=== PATIENT | male | born 1975 | race Caucasian/White ===

== ENCOUNTER 2019-03-04 16:56 | Inpatient (IN) | payer MEDICAID ==
[~2019-03-04] VITALS: Ht 167.6 cm; Wt 77.6 kg
[2019-03-04 17:05] VITALS: Ht 167.6 cm; Wt 77.6 kg
--- NOTE | 2019-03-04 18:04 | NUR ---
PT C/O "POKING" MUQ PAIN WITH N/V SINCE THURSDAY PER PT "I ATE EGGS BEFOER BED AND IT HAS BEEN HURTING SINCE" PT DENIES ANY RECENT TRAUMA AND/OR INJURY. PT DENIES ANY OTHER S/S. PT AAOX4, RESPS E/U, SKIN PINK DRY AND WARM, +N +V AT THIS TIME, EMESIS BAG PROVIDED, PT PLACED ON FULL CM, NSR, SPOUSE AT BEDSIDE, PT AWAITING MSE
--- NOTE | 2019-03-04 18:09 | NUR ---
PT INSTRUCTED TO PROVIDE URINE SPECIMEN DAVIDA
--- NOTE | 2019-03-04 18:09 | NUR ---
SING AT BEDSIDE PERFORMING MSE
[2019-03-04 18:20] LABS: CALCIUM 8.3 mg/dL (8.5-10.1); CARBON DIOXIDE 28.4 mmol/L (21-32); CHLORIDE SERUM 104 mmol/L (98-107); CREATININE SERUM 0.8 mg/dL (0.7-1.3); GFR1 > 60 mL/min; POTASSIUM SERUM 3.8 mmol/L (3.5-5.1); SODIUM SERUM 140 mmol/L (136-145)
[2019-03-04 18:22] LABS: ALBUMIN 3.9 g/dL (3.4-5.0); ALKALINE PHOSPHATASE 255 U/L (46-116); ALT/SGPT 607 U/L (16-63); AST/SGOT 382 U/L (15-37); BILIRUBIN TOTAL 7.5 mg/dL (0.20-1.00); TOTAL PROTEIN, SERUM 7.8 g/dL (6.4-8.2)
[2019-03-04 18:24] LABS: PLATELET COUNT 160 x10^3mcL (130-400); RED CELL DISTRIBUTION WIDTH 13.8 % (11.5-14.5)
[2019-03-04 18:27] LABS: BASOPHIL % 0 % (0-2)
--- NOTE | 2019-03-04 18:31 | NUR ---
US AT BEDSIDE
[2019-03-04 19:01] LABS: GLUCOSE SERUM 138 mg/dL (74-106)
--- NOTE | 2019-03-04 19:08 | NUR ---
REPORT GIVEN TO LEVI JEFFERY RN
--- NOTE | 2019-03-04 19:10 | NUR ---
REPORT GIVEN BY JESSICA GONZALEZ. PT REQUESTING TO USE RESTROOM AT THIS TIME. PT AMBULATED TO RESTROOM WITH STEADY GAIT TO PROVIDE URINE SAMPLE.
[2019-03-04 19:37] LABS: LIPASE 26937 IU/L (73-393)
--- NOTE | 2019-03-04 19:50 | NUR ---
LAB AT BEDSIDE FOR BLOOD CULTURE COLLECTION.
--- NOTE | 2019-03-04 19:56 | NUR ---
PT STATES "IM GOING TO THROW UP". PT VOMITED MEDIUM AMOUNT OF EMESIS. DR POE MADE AWARE. PT MEDICATED PER MD ORDERS. WILL CONTINUE TO MONITOR.
--- NOTE | 2019-03-04 20:33 | NUR ---
REPORT CALLED TO ANIKET GONZALEZ
--- NOTE | 2019-03-04 20:44 | NUR ---
[facility] TO LISA PARK. VERIFIED WITH LISA PARK THAT PT WAS VONTUNTARY HOLD. VIVIAN NOTIFIED THAT PT DID NOT WANT TO RETURN TO [facility] AND THAT DR POE WAS AWARE AND WANTED TO DC PT HOME. VIVIAN GONZALEZ ACKNOWLEDGED. PT IS CALM AND COOPERATIVE, DENIES SI OR HI. DR POE MADE AWARE.
[2019-03-04 21:10] LABS: FREE T4 0.99 ng/dL (0.76-1.46); FREE THYROXINE INDEX 2.8 ug/dL (1.4-4.5); T4(THYROXINE) 8.4 ug/dL (4.7-13.3)
[2019-03-04 21:11] LABS: T3 TOTAL 0.99 ng/mL
--- NOTE | 2019-03-04 21:14 | NUR ---
PT TRANSFERED TO [facility] AT THIS TIME BY JODIE EMT VIA WHEELCHAIR. PT A&0X4 SPEAKING FULL CLEAR SENTENCES. PT BREATHING EVEN AND UNLABORED. PT ACCOMPANIED BY FAMILY. PT AND FAMILY VERBALIZED UNDERSTANDING OF DC INSTRUCTIONS AND MEDICATION REVIEW.
[2019-03-04 21:28] VITALS: BP 143/86
[2019-03-04 21:28] LABS: microscopic required? NO
--- NOTE | 2019-03-04 21:30 | NUR ---
PT RECEIVED FROM LISA MCKNIGHT, PT IS ALERT AND ORIENTED X4, CALM AND COOPERATIVE WITH CARE. PT IS COMPLAINING OF ABDOMINAL PAIN AT THIS TIME. PT STATES PAIN IS SHARP. AND IS 10/10. WILL MEDICATE WITH PRN NORCO. SAFETY AND COMFORT MEASURES MAINTAINED, BED IN LOWEST POSITION, CALL LIGHT WITHIN REACH. WILL CONTINUE TO MONITOR.
[2019-03-04 21:33] LABS: urine erythrocyte NEGATIVE (NEGATIVE)
--- NOTE | 2019-03-04 21:35 | NUR ---
RECEIVED PT FROM ER, PT ADMIT FOR GALLSTONE, PANCREATITIS, PT IS A/O X4, VERBAL RESPONSIVE, ABLE TO TELL WHAT HE NEEDS. LUNG SOUND CLEAR BILATERAL, NO COUGH, NO SOB, PT DENY ANY CHEST PAIN OR DISCOMFORT, BOWEL SOUND PRESENT ALL 4 QUADRANTS, MILD DISTENTED. C/O PAIN AT MID ABD, DENY ANY N/V AT THIS MOMENT, PEDAL PULSE PRESENT BOTH FEET,NO EDEMA, IV AT RIGHT AC, NO LEAKING, NO INFILTRATION. ALL ADLS ASSIST, ALL NEED MET, CALL LIGHT IN REACH, WILL CONTINUE TO MONITOR.
[2019-03-04 21:53] LABS: AMPHETAMINE QUAL UR NONE DETECTED (See below)
--- NOTE | 2019-03-04 22:24 | NUR ---
PT HAS ACTIVE VOMITING EPISODE AND IS COMPLAINING OF SHARP ABDOMINAL PAIN. PT STATES PAIN IS 10/10 PAIN. PRN NORCO GIVEN AND PRN ZOFRAN GIVEN FOR NAUSEA. WILL CONTINUE TO MONITOR PATIENT.
--- NOTE | 2019-03-04 23:26 | NUR ---
ASSUMED THE CARE FROM LISA MARCIAL, PT ASLEEP NO S/SX OF PAIN, IVF INFUSING WELL FAMILY AT BEDSIDE, CONT TO MONITOR.
--- NOTE | 2019-03-05 01:34 | NUR ---
PT AWAKE AND RESTLESS STATED HE'S IN A LOT OF PAIN 10/10 PER ASSESSMENT, NORCO PO GIVEN EARLIER OFFERS SHORT RELIEF PER PT, CALLED DR BAXTER, SPOKE TO MD AND ORDER OBTAINED FOR MORPHINE IV 1MG, MEDS GIVEN PER PRN ORDER, CONT TO MONITOR.
--- NOTE | 2019-03-05 01:47 | NUR ---
PT START VOMITING AFTER GIVING MORPHINE IVP, ZOFRAN 4MG ADMIN PER PRN ORDER FOR N/V, CONT TO MONITOR.
[2019-03-05 05:18] VITALS: BP 133/81
--- NOTE | 2019-03-05 07:00 | NUR ---
RECEIVED REPORT FROM SAVANNA RN, PT RESTING IN BED IN NO ACUTE RESP DISTRESS
[2019-03-05 07:04] LABS: CALCIUM 8.2 mg/dL (8.5-10.1); CARBON DIOXIDE 22.1 mmol/L (21-32); CHLORIDE SERUM 106 mmol/L (98-107); CHOLESTEROL 166 mg/dL (<200); CHOLESTEROL/HDL RATIO 3.6; CREATININE SERUM 0.7 mg/dL (0.7-1.3); GFR1 > 60 mL/min; GLUCOSE SERUM 163 mg/dL (74-106); HDL CHOLESTEROL 46 mg/dL (40-60); LACTIC DEHYDROGENASE (LDH) 234 U/L (100-190); POTASSIUM SERUM 3.6 mmol/L (3.5-5.1); SODIUM SERUM 140 mmol/L (136-145); TRIGLYCERIDES 64 mg/dL (<150)
--- NOTE | 2019-03-05 07:05 | NUR ---
PT IN BED, IN NO ACURE RESP DISTRESS, VERBAL, GERMAN/[place], ABLE TO MAKE NEEDS KNOWN, NO REDNESS/DISCHARGE, NO DROOP FACE/SLURRED SPEECH, PERRLA, RESP EVEN AND NON-LABORED, CHEST RISE SYMMETRICALLY, MEDSURG, AXOX4, DENIED N/V/D/DIZZINESS, DENIED CP/PRESSURE/VENCES, SKIN D/W/C, IV PATENT AND NO INFILTRATION, AMBULATORY, BRP, CONTINENT, ABD ROUND AND MILD NON-TENDER TO TOUCH, REPORT MILD DISCOMFORT BUT TOLERABLE AT THIS TIME, 09/12, ACTIVE X 4, LAST BM 03/04/19, SOFT PER PT REPORT, AT BEDSIDE, ALL NEEDS MET AT THIS TIME, SAFETY PROTOCOL FOLLOWED, CONTINUE TO MONITOR
--- NOTE | 2019-03-05 07:10 | NUR ---
PT NOT IN ACUTE DISTRESS, WENT DOWN FOR CT ABD
[2019-03-05 07:12] LABS: BASOPHIL % 0 % (0-2); PLATELET COUNT 147 x10^3mcL (130-400); RED CELL DISTRIBUTION WIDTH 13.8 % (11.5-14.5)
--- NOTE | 2019-03-05 08:10 | NUR ---
PT BACK TO ROOM FROM CT ABD, RESTIGN IN BED W/ EYE CLOSED, NOT IN ACUTE RESP DISTRESS
--- NOTE | 2019-03-05 09:14 | NUR ---
PT PREPARED FOR SURGERY, PRE-OP DONE, CHECK LIST DONE, EZEQUIEL BATH GIVEN, FAMILY AND PT AWARE, CONTINUE TO MONITOR
--- NOTE | 2019-03-05 09:20 | NUR ---
REPORT GIVEN TO [employer]UNITY [employer]ATION AIDE, INFORMED CONSENT SIGNED AND KEPT IN CHART, PT AND FAMILY AWARE
[2019-03-05 09:21] VITALS: BP 134/79
--- NOTE | 2019-03-05 09:23 | NUR ---
RECEIVED REPORT FROM ASHWIN COMPOSITE BOND TECHNICIAN, AWARE OF RESULT OF CT RESULT, AND CHARGE NURSE ANNABELLA MADE AWARE, PT WILL HAVE SURGERY AT 0930
--- NOTE | 2019-03-05 10:14 | NUR ---
OR STAFF CALLED AND REPORTED DELAY W/ SURGERY, PT WILL HAVE SURGERY AT 1030 AND POSSIBLE BE BACK AT 1200, AWARE
--- NOTE | 2019-03-05 11:21 | NUR ---
PT BACK FROM ERCP PROCEDURE, REPORT GIVEN BY REINA BOAT DIESEL MOTOR MECHANIC, PT HAD STENT X 2, BALLOON INSERTION SPHINCTEROTOMY, PT IN NO ACUTE DISTRESS, RESTING IN BED W/ EYE CLOSED, RESP EVEN AND NON-LABORED, CHEST RISE SYMMETRICALLY, ABD ROUND AND MILD DISTENTION TO TOUCH, REPORT MINIMAL AND TOLERABLE DISCOMFORT AT THIS TIME, IV PATENT AND NO-INFILTRATION NOTED, V/S: 132/76, 68, 18, 99% AT RA, 0/10, 98.6, FAMILY AT BEDSIDE, DROWSY, CONTINUE TO BE NPO, SAFETY PROTOCOL FOLLOWED, CONTINUE TO MONITOR
--- NOTE | 2019-03-05 12:14 | NUR ---
PT RESTING IN BED, SCD APPLIED, DENIED DISCOMFORT AT THIS TIME, WIF AT BEDSIDE, SAFETY PROTOCOL FOLLOWED, CONTINUE TO MONITOR
--- NOTE | 2019-03-05 14:18 | NUR ---
PT SLEEPING IN BED, IN NO APPARENT DISTRESS/PAIN, AT BEDSIDE, ALL NEEDS MET AT THIS TIME, SAFETY PROTOCOL FOLLOWED, CONTINUE TO MONITOR
[2019-03-05 16:41] VITALS: BP 124/75
--- NOTE | 2019-03-05 18:04 | NUR ---
PT SLEEPING IN BED, IN NO ACUTE RESP DISTRESS, AT BEDSIDE, ABLE TO MAKE NEEDS KNOWN, CALM AND COPPERATIVE W/ POC, DENIED VENCES/CP/PRESSURE, DENIED N/V/D/DIZZINESS, NO FACIAL DROOP/SLURRED SPEECH, RESP EVEN AND NON-LABORED, CHEST RISE SYMMETRICALLY, ABD SOFT AND MILD TENDER TO TOUCH, BS ACTIVE X 4, ABLE TO MOVE ALL EXTREMITIES, IV PATENT AND NO INFILTRATION NOTED, SKIN W/D/C, CONTINENT, AMBULATORY, ALL NEEDS MET AT THIS TIME, SAFETY PROTOCOL FOLLOWED, WILL ENDORSE TO ONCOMING RN
--- NOTE | 2019-03-05 19:05 | NUR ---
PT RECEIVED FROM THE DAY SHIFT RN. PT HAS BEEN CALM AND COOPERATIVE WITH CARE, PT IS ALERT AND ORIENTED X4, PT STATES PULSATING PAIN IN HIS ABDOMEN AND IS A 4/10 AT THIS TIME. PT WAS GIVEN PRN NORCO EARLIER IN SHIFT ( SEE MAR), PT STATES NORCO DOES IMPROVE PAIN. SISTER IS AT THE BEDSIDE. ALL QUESTIONS AND CONCERS ADDRESSED, SAFETY AND COMFORT MEASURES MAINTAINED, CALL LIGHT WITHIN REACH. WILL CONTINUE TO MONITOR AT THIS TIME.
--- NOTE | 2019-03-05 19:54 | NUR ---
PT TEMPERATURE IS AT 100.9, COOLING MEASURES STARTED AND WILL MEDICATE WITH PRN TYLENOL. WILL CONTINUE TO MONITOR.
[2019-03-05 20:14] VITALS: BP 118/70
--- NOTE | 2019-03-06 01:27 | NUR ---
PT IS RESTING IN BED WITH EYES CLOSED AT THIS TIME. NO ACUTE DISTRESS NOTED. NO S/S OF PAIN NOTED. SAFETY AND COMFORT MEASURES MAINTAINED, BED IN LOWEST POSITION, CALL LIGHT WITHIN REACH.
--- NOTE | 2019-03-06 05:26 | NUR ---
PT HAS RESTED IN INTERMITTENT INTERVALS THROUGHOUT THE SHIFT. PT HAS BEEN ALERT AND ORIENTED X4, CALM AND COOPERATIVE WITH CARE. SISTER IS AT THE BEDSIDE. PT IS RESTING WITH EYES CLOSED, NO ACUTE DISTRESS NOTED. NO S/S OF PAIN NOTED. IV INFUSING AND INTACT AT THIS TIME. SAFETY AND COMFORT MEASURES MAINTAINED, BED IN LOWEST POSITION, CALL LIGHT WITHIN REACH. WILL ENDORSE CONTINUITY OF CARE TO THE ONCOMING RN.
[2019-03-06 05:42] VITALS: BP 128/81
[2019-03-06 05:56] LABS: RED CELL DISTRIBUTION WIDTH 13.7 % (11.5-14.5)
[2019-03-06 06:23] LABS: CALCIUM 8.1 mg/dL (8.5-10.1); CARBON DIOXIDE 26.3 mmol/L (21-32); CHLORIDE SERUM 104 mmol/L (98-107); CREATININE SERUM 0.7 mg/dL (0.7-1.3); GFR1 > 60 mL/min; GLUCOSE SERUM 101 mg/dL (74-106); PHOSPHOROUS 2.2 mg/dL (2.5-4.9); POTASSIUM SERUM 3.4 mmol/L (3.5-5.1); SODIUM SERUM 139 mmol/L (136-145)
[2019-03-06 06:52] LABS: PLATELET COUNT 120 x10^3mcL (130-400)
--- NOTE | 2019-03-06 07:39 | NUR ---
RECEIVED REPORT FROM ANIKET RN, PT IN NO ACUTE RESP DISTRESS
[2019-03-06 07:44] VITALS: BP 120/75
--- NOTE | 2019-03-06 09:30 | NUR ---
PT IN NO ACUTE DISTRESS, NPO
[2019-03-06 10:05] LABS: CALCIUM 7.3 mg/dL (8.5-10.1); CARBON DIOXIDE 24.4 mmol/L (21-32); CHLORIDE SERUM 104 mmol/L (98-107); CREATININE SERUM 0.7 mg/dL (0.7-1.3); GFR1 > 60 mL/min; GLUCOSE SERUM 99 mg/dL (74-106); POTASSIUM SERUM 3.5 mmol/L (3.5-5.1); SODIUM SERUM 137 mmol/L (136-145)
--- NOTE | 2019-03-06 10:05 | NUR ---
SURGEON OU VISITED PT, INFORMED CONSENT SIGNED, PRE-OP PREPARED AND COMPLETED, EZEQUIEL BATH GIVEN, PT IN STABLE CONDITION
--- NOTE | 2019-03-06 10:06 | NUR ---
PT IN BED, IN NO ACURE RESP DISTRESS, VERBAL, THAI/KINYARWANDA, ABLE TO MAKE NEEDS KNOWN, NO REDNESS/DISCHARGE, NO DROOP FACE/SLURRED SPEECH, PERRLA, RESP EVEN AND NON-LABORED, CHEST RISE SYMMETRICALLY, MEDSURG, AXOX4, DENIED N/V/D/DIZZINESS, DENIED CP/PRESSURE/VENCES, SKIN D/W/C, IV PATENT AND NO INFILTRATION, LR AT 150ML/HR RUNING W/ NO OBSTRUCTION, AMBULATORY, BRP, CONTINENT, ABD ROUND AND MILD NON-TENDER TO TOUCH, REPORT MILD DISCOMFORT BUT TOLERABLE AT THIS TIME, COMFORT MEASUREMET DONE FOR TEMP, TAKEN WELL, ACTIVE X 4, LAST BM 03/04/19, SOFT PER PT REPORT, FAMILY AT BEDSIDE, ALL NEEDS MET AT THIS TIME, SAFETY PROTOCOL FOLLOWED, CONTINUE TO MONITOR
[2019-03-06 10:10] LABS: ALKALINE PHOSPHATASE 166 U/L (46-116); ALT/SGPT 280 U/L (16-63); AST/SGOT 81 U/L (15-37); BILIRUBIN TOTAL 2.96 mg/dL (0.20-1.00)
[2019-03-06 10:12] LABS: ALBUMIN 2.9 g/dL (3.4-5.0); TOTAL PROTEIN, SERUM 5.8 g/dL (6.4-8.2)
--- NOTE | 2019-03-06 10:25 | NUR ---
PT WENT TO OR, ASSISTED BY REINA GONZALEZ VIA STACEY, PT NOT IN ACUTE REPS DISTRESS, FAMILY AWARE, WILL CONTINUE TO MONITOR PT POST-OP
[2019-03-06 10:54] LABS: BAND NEUTROPHIL 1 % (0-10); BASOPHIL 0 % (0-2); MONOCYTE 6 % (0-7); SEGMENTED NEUTROPHILS 89 % (37-75)
[2019-03-06 10:57] LABS: PLATELET MORPHOLOGY PLATELETS NORMAL
[2019-03-06 13:30] VITALS: BP 106/72
--- NOTE | 2019-03-06 13:34 | NUR ---
PT RETURNED FROM OR, NOT IN ACUTE RESP DISTRESS, AXOX4 W/ LITTLE DROWSY, ABLE TO MOVE ALL EXTREMITIES, VERBAL, ABLE TO MAKE NEEDS KNOWN, NO FACIAL DROOP/SPLURRED SPEECH, RESP EVEN, NO COUGH/SOB, CHEST RISE SYMMETRICALLY, MEDSURG, ABD ROUND AND MILD DICOMFORT REPORTED, BS HYPOACTIVE X 4, 6 INCISION NOTED COVER WITH BANDAID AND ISLAND DRESSING, DRESSING CDI, NAHID TUBE TO RUQ, NOTED 25CC BLOODY DRAINAGE, CORE BAKER REPORT 500CC BLOOD LOSS DURING OPERATION, PT REPORTED NO PAIN AT THIS TIME, SKIN D/W/C, PALP PULSES, CAP REFILL < 3 SECS, V/S: 98.4, 96% AT RA, 18, 88, 106/72, 0/10, FAMILY AT BEDSIDE, ALL NEEDS ADDRESSED AT THIS TIME, SAFETY PROTOCOL FOLLOWED FOR POST-OP PT, CONTINUE TO MONITOR
--- NOTE | 2019-03-06 14:49 | NUR ---
PT SLEEPING IN BED, IN NO ACUTE RESP DISTRESS, NAHID DRAINED, NOTED 100CC BLOODY DRAINAGE, IV PATENT AND INFUSING WELL, ALL NEEDS ADDRESSED AT THIS TIME, SAFETY PROTOCOL FOLLOWED, CONTINUE TO MONITOR
[2019-03-06 16:44] VITALS: BP 112/73
--- NOTE | 2019-03-06 16:50 | NUR ---
PT RESTING IN BED W/ EYES CLOSED, IN NO APPARENT DISTRESS, NAHID DRAINED NOTED 60CC DRAINAGE WITH RED BLOODY COLOR, DRESSING CDI, FAMILY AT BEDSIDE, ALL NEEDS ADDRESSED AT THIS TIME, SAFETY MONITOR, CONTINUE TO MONITOR
--- NOTE | 2019-03-06 17:06 | NUR ---
PT ASISTED TO BATHROOM, VOIDED X 1, ASSISTED BACK TO BED, SAFETY MONITOR, CONTINUE TO MONITOR
--- NOTE | 2019-03-06 18:15 | NUR ---
PT RESTING IN BED, FAMILY AT [facility], IN NO ACUTE DISTRESS, RESP EVEN, NO COUGH/SOB, CHEST RISE SYMMETRICALLY, NO FAIACL DROOP/SLUURED SPEECH, ABLE TO MAKE NEEDS KNOWN, ABD SOFT AND ROUND, 6 BANDAIDS TO ABD SITE CDI, ISLAND DRESSING CDI, NAHID TUBE PATENT AND NO OBSTRUCTION NOTED AT THIS TIME, RED BLOOD COLOR DRAINGE NOTED, ABLE TO MOVE ALL EXTREMITIES, IV PATENT AND INFUSING WELL, CONTINENT, AMBULATORY, ALL NEEDS ADDRESSED AT THIS TIME, SAFETY PROTOCOL FOLLOWED, WILL ENDORSE TO ONCOMING RN
[2019-03-06 18:33] LABS: RED CELL DISTRIBUTION WIDTH 13.8 % (11.5-14.5)
[2019-03-06 18:44] LABS: PLATELET COUNT 113 x10^3mcL (130-400)
[2019-03-06 18:54] LABS: BAND NEUTROPHIL 3 % (0-10); MONOCYTE 5 % (0-7); SEGMENTED NEUTROPHILS 90 % (37-75)
[2019-03-06 18:56] LABS: PLATELET MORPHOLOGY PLATELETS DECREASED; acanthocyte (spur cell) 1+; rbc morphology (normal/abnorm) ABNORMAL (NORMAL)
--- NOTE | 2019-03-06 19:14 | NUR ---
REPORT GIVEN TO CHADD GONZALEZ
--- NOTE | 2019-03-06 19:30 | NUR ---
RECIEVED PATIENT AT START OF SHIFT A.O X4, FAMILY AT BEDSIDE. MED-SURG. NO SOB ON RA, BREATHS REGULAR AND EVEN. PATIENT REPORTS 7/10 PAIN TO HIS ABDOMEN. DRESSING ON ABDOMEN IS CLEAN DRY AND INTACT. NAHID DRAIN HAS MINIMAL SEROSANGUINOUS DRAINAGE. IV TO RAC IS INFUSING WITHOUT ERYTHEMA OR INFILTRATION. BED LOCKED AND IN LOWEST POSIITON. CALL LIGHT WITHIN REACH.
--- NOTE | 2019-03-06 19:39 | NUR ---
PATIENT GIVEN NORCO PER EMAR FOR 7/10 ABDOMINAL PAIN.
[2019-03-06 20:38] VITALS: BP 114/73
--- NOTE | 2019-03-06 21:30 | NUR ---
PATIENT REPORTED PERSISTENT 7/10 ABDOMINAL PAIN. MORPHINE OBTAINED FROM [facility]IS WITH JUAN GONZALEZ TO WITNESS 1 MG WASTE. PATIENT THEN DECIDED HE DID NOT WANT THE MORPHINE BECAUSE IT MAKES HIM NAUSEOUS. REMAINING 1 MG WASTED WITH ROXANNA GONZALEZ WITNESS.
--- NOTE | 2019-03-07 01:37 | NUR ---
PATIENT GIVEN NORCO PER EMAR FOR 7/10 PAIN TO HIS ABDOMEN. IV INFUSING WITHOUT ERYTHEMA OR INFILTRATION. ABDOMINAL SURGICAL DRESSINGS REMAINS CDI. NAHID DRAINING MODERATE SEROSANGUINOUS FLUID. CALL LIGHT WITHIN REACH.
--- NOTE | 2019-03-07 05:20 | NUR ---
PATIENT GIVEN NORCO PER EMAR FOR 10/10 PAIN TO HIS ABDOMEN.
--- NOTE | 2019-03-07 05:58 | NUR ---
PATIENT'S NAHID DRAIN PRODUCED 140 MLS TOTAL OF SEROSANGUINOUS DRAINAGE THIS SHIFT. SURGICAL DRESSING REMAINS CDI. IV INFUSING WITHOUT ERYTHEMA OR INFILTRATION. BED LOCKED AND IN LOWEST POSIITON. CALL LIGHT WITHIN REACH.
[2019-03-07 05:59] VITALS: BP 121/74
[2019-03-07 06:26] LABS: RED CELL DISTRIBUTION WIDTH 13.8 % (11.5-14.5)
[2019-03-07 06:32] LABS: BASOPHIL % 0 % (0-2); PLATELET COUNT 110 x10^3mcL (130-400)
--- NOTE | 2019-03-07 06:36 | NUR ---
PATIENT GIVEN DILAUDID PER EMAR FOR 9/10 PAIN TO HIS ABDOMEN.
[2019-03-07 06:47] LABS: ALBUMIN 2.3 g/dL (3.4-5.0); ALT/SGPT 217 U/L (16-63); AST/SGOT 106 U/L (15-37); CREATININE SERUM 0.7 mg/dL (0.7-1.3); GFR1 > 60 mL/min; GLUCOSE SERUM 96 mg/dL (74-106); MAGNESIUM 2.2 mg/dL (1.8-2.4); PHOSPHOROUS 2.2 mg/dL (2.5-4.9); POTASSIUM SERUM 3.9 mmol/L (3.5-5.1)
--- NOTE | 2019-03-07 07:50 | NUR ---
RECEIVED PT IN BED A/A/OX4 DENIES VENCES. RESP EVEN AND UNLABORED WITH CLEAR BS BILAT. DENIES ANY SOB/CP/PRESSURE AT THIS TIME. NO EDEMA NOTED. ABD SOFT, DISTENDED, AND TENDER TO TOUCH, DENIES ANY N/V AT THIS TIME. MILD PAIN RECENTLY MEDICATED WITH DILAUDID. S/P LAP LAWRENCE POD1 AND S/P ERCP POD2. PT WITH ABD SX DRSG IN PLACE CDI. RLQ NAHID DRAIN IN PLACE WITH SEROUSANGUINOUS DRAINAGE. AMBULATORY, VOIDING FREELY. CALL LIGHT IN REACH NEEDS ATTENDED TO.
[2019-03-07 08:09] LABS: ALKALINE PHOSPHATASE 150 U/L (46-116); BILIRUBIN TOTAL 3.97 mg/dL (0.20-1.00); CALCIUM 8.4 mg/dL (8.5-10.1); CARBON DIOXIDE 22.4 mmol/L (21-32); CHLORIDE SERUM 101 mmol/L (98-107); SODIUM SERUM 135 mmol/L (136-145); TOTAL PROTEIN, SERUM 6.5 g/dL (6.4-8.2)
[2019-03-07 08:58] VITALS: BP 117/79
--- NOTE | 2019-03-07 10:05 | NUR ---
PT C/O PAIN TO SX SITE 01/10. MEDICATED WITH NORCO PER EMAR.
--- NOTE | 2019-03-07 11:17 | NUR ---
PT STILL C/O OF DISCOMFORT WITH MINIMAL RELIEF WITH NORCO. MEDICATED WITH TORADOL PO PER EMAR.
--- NOTE | 2019-03-07 13:00 | NUR ---
RECEIVED A CALL FROM DR. MEDINA REQUESTING INFORMATION ON PT'S STATUS. MADE AWARE OF LATEST LAB RESULTS. MD ORDER LABS FOR TOMORROW MORNING. MD ALSO REQUESTED FOR PT TO BE MADE AWARE THAT HE HAD PLACED 2 STENT ON PANCREATIC DUCT AND BILE DUCT. MD WANTED TO MAKE SURE PT WAS AWARE THAT HE NEEDED TO F/U WITH HIM AT HIS OFFICE IN 2 WEEKS TO HAVE PANCREATIC STENT REMOVED. SPOKE WITH PT IN [employer] AND MADE HIM AWARE OF INSTRUCTIONS BY DR. MEDINA. PT VERBALIZED HE WAS AWARE THAT HE HAD 2 STENTS AND UNDERSTOOD THAT HE NEEDED TO F/U WITH DR. MEDINA WITH IN 2 WEEK. PT WAS PROVIDED WITH DR. MEDINA OFFICE INFO AT THIS TIME.
--- NOTE | 2019-03-07 14:50 | NUR ---
PT TOLERATING CLEAR LIQUID DIET WELL. DENIES ANY FURTHER DISCOMFORT AT THIS TIME. SITTING UP ON EDGE OF BED, ENCOURAGE AMBUALTION.
[2019-03-07 16:14] VITALS: BP 112/68
--- NOTE | 2019-03-07 17:00 | NUR ---
PT RESTING WITH EYES CLOSD COMFORTABLE. MOTHER REMAINS AT BEDSIDE.
--- NOTE | 2019-03-07 18:25 | NUR ---
PT RESTING AT THIS TIME WITH FAMILY AT BEDSIDE C/O MOD PAIN. PT AMBULATED DOWN THE HALLWAY. TOLERATED ACTIVITY WELL.
--- NOTE | 2019-03-07 18:36 | NUR ---
PT C/O PAIN TO ABD. MEDICATED WITH NORCO PO PER EMAR.
--- NOTE | 2019-03-07 19:30 | NUR ---
RECEIVED REPORT FROM AM NURSE. PT LAYING DOWN IN BED WITH FAMILY AT BEDSIDE. PT AAOX4, FOLLOW COMMANDS. ABLE TO MAKE NEEDS KNOWN. MED/SURG DENIES ANY CP/PRESSURE AT THIS TIME. PALPABLE PULSES TO BLE AND BUE. NO EDEMA NOTED. LUNG SOUNDS CTA ON RA. BREATHING EVEN AND UNLABORED. ABD SOFT AND DISTENDED. S/P X1 DAY LAP LAWRENCE. ACTIVE BOWEL SOUNDS X4 QUAD. STATED PASSING GAS. LAST BM 03/04/19. DENIES N/V/D. VOIDS FREELY BRP. AMBULATORY. 6 BAND AIDS TO ABD CDI. NAHID DRAIN TO RUQ DRAINING SEROSANGUINEUS FLUID. C.O 12/10 ABD PAIN DESCRIBED ACHING. WILL MEDICATE ACCORDINGLY. IV TO RAC PATENT AND INTACT. SITE FREE FROM REDNESS AND SWELLING. BED AT LOWEST SETTING. SIDE RAILS X2 UP. CALL LIGHT WITHING REACH. WILL CONTINUE TO MONITOR.
[2019-03-07 20:59] VITALS: BP 120/76
--- NOTE | 2019-03-07 22:10 | NUR ---
PT MEDICATED WITH PRN TORADOL PER MAR FOR ABD PAIN .PT SATES HIS PAIN GETTING BETTER. WILL CONTINUE TO MONITOR.
--- NOTE | 2019-03-08 01:44 | NUR ---
PT C/O 03/12 ABD PAIN, MEDICATE WITH PRN NORCO PER OCT. DRAINED NAHID, 110CC OUTPUT. SEROSANGUINEOUS FLUID. NO ACUTE DISTRES NOTED. BREATHING EVEN ADN UNLABORED ON RA. WILL CONTINUE TO MONITOR.
--- NOTE | 2019-03-08 05:20 | NUR ---
PT SLEPT AT INTERVALS THROGHOUT THE NIGHT. BREATHING EVEN AND UNLABORED ON RA. NO ACUTE DISTRESS NOTED. MEDICATED WITH TORADOL PRN FOR AND PAIN RATED 7/10. NAHID DRAINING SEROSANGUINEOUS FLUID. DRESSING TO ABD CDI. IV TO RAC RUNNING LR AT 70ML/HR. SITE FREE FROM REDNESS AND SWELLING. ALL NEEDS ASSESSED AND ATTENDED TO. BED AT LOWEST SETTING. SIDE RAILS X2 UP. CALL LIGHT WITHING REACH. WILL ENDORSE CARE TO AM NURSE.
[2019-03-08 05:39] VITALS: BP 117/71
[2019-03-08 06:30] LABS: BASOPHIL % 0.1 % (0-2); RED CELL DISTRIBUTION WIDTH 13.8 % (11.5-14.5)
[2019-03-08 06:49] LABS: ALKALINE PHOSPHATASE 189 U/L (46-116); ALT/SGPT 166 U/L (16-63); AMYLASE 64 U/L (25-115); AST/SGOT 66 U/L (15-37); BILIRUBIN DIRECT 1.02 mg/dL (0.0-0.2); CARBON DIOXIDE 26.6 mmol/L (21-32); CHLORIDE SERUM 100 mmol/L (98-107); CREATININE SERUM 0.7 mg/dL (0.7-1.3); GFR1 > 60 mL/min; GLUCOSE SERUM 112 mg/dL (74-106); LIPASE 182 IU/L (73-393); MAGNESIUM 2.1 mg/dL (1.8-2.4); PHOSPHOROUS 2.8 mg/dL (2.5-4.9); POTASSIUM SERUM 3.3 mmol/L (3.5-5.1); SODIUM SERUM 134 mmol/L (136-145)
[2019-03-08 06:52] LABS: PLATELET COUNT 110 x10^3mcL (130-400)
--- NOTE | 2019-03-08 07:15 | NUR ---
RECEIVED PT IN BED A/A/OX4 DENIES VENCES. RESP EVEN AND UNLABORED WITH CLEAR BS BILAT. DENIES ANY SOB/CP/PRESSURE AT THIS TIME. NO EDEMA NOTED WITH IVF TO RAC. ABD SOFT, SLIGHTLY DISTENDED AND TENDER WITH ACTIVE BS X4. DENIES ANY N/V AT THIS TIME. +FLATUS, LAP LAWRENCE POD2 AND ERCP POD3. NAHID DRAIN TO RLQ QITH SEROUSANGUINOUS DRAINAGE DECREASING IN OUTPUT VOLUME OVERNIGHT. SX SITES WITH LARGE ABD DRSG IN PLACE CDI. PT AMBULATORY, AND VOIDING FREELY. MOTHER AT BEDSIDE. CALL LIGHT IN REACH NEEDS ATTENDED TO.
[2019-03-08 08:16] VITALS: BP 102/66
--- NOTE | 2019-03-08 09:55 | NUR ---
PT C/O MOD PAIN TO ABD SX SITES 01/10, MEDICATED WITH NORCO PER EMAR. PT ENCOURAGE TO CONT WITH AMBULATION TOLERATED TO HELP WITH DISCOMFORT.
[2019-03-08 11:48] VITALS: BP 108/72
--- NOTE | 2019-03-08 14:00 | NUR ---
PT TOLERATED ADVANCEMENT TO REGULAR DIET. INSTRUCTED TO EAT SLOWLY.
--- NOTE | 2019-03-08 15:10 | NUR ---
PT C/O PAIN AFTER BEING ASSISTED TO WASH UP WITH BED BATH. MEDICATED WITH TORAOL PO PER EMAR. CALL LIGHT IN REACH, FAMILY AT BEDSIDE.
[2019-03-08 16:20] VITALS: BP 105/69
--- NOTE | 2019-03-08 17:00 | NUR ---
PT RESTING AT THIS TIME DENIES ANY DISCOMFORT. FAMILY AT BEDSIDE.
--- NOTE | 2019-03-08 19:15 | NUR ---
RECEIVED PT FROM PREVIOUS SHIFT NURSE. PT AOX4. DENIES VENCES/DIZZINESS. MED SURG PT, DENIES CP/PRESSURE. DENIES SOB/DIFFICULTY BREATHING, ON RA. DENIES ABD PAIN/DISCOMFORT AT THIS TIME. BAND AIDS TO ABD WITH SADIE, ISLAND DSG CDI. NAHID DRAIN TO RUQ IN PLACE, SEROUS OUTPUT NOTED. IV TO RAC, INTACT AND PATENT. BED IN LOWEST POSITION. CALL LIGHT WITHIN REACH. WILL CONTINUE TO MONITOR.
[2019-03-08 19:50] VITALS: BP 112/76
--- NOTE | 2019-03-09 03:00 | NUR ---
PT RESTING IN BED. RR EVEN AND UNLABORED. IN NO ACUTE DISTRESS. CALL LIGHT WITHIN REACH. BED IN LOWEST POSITION. WILL CONTINUE TO MONITOR.
[2019-03-09 05:20] VITALS: BP 115/70
[2019-03-09 07:00] LABS: PLATELET COUNT 146 x10^3mcL (130-400); RED CELL DISTRIBUTION WIDTH 13.3 % (11.5-14.5)
[2019-03-09 07:14] LABS: ALKALINE PHOSPHATASE 178 U/L (46-116); AST/SGOT 28 U/L (15-37); BILIRUBIN TOTAL 1.32 mg/dL (0.20-1.00); CALCIUM 8.4 mg/dL (8.5-10.1); CARBON DIOXIDE 27.3 mmol/L (21-32); CHLORIDE SERUM 102 mmol/L (98-107); CREATININE SERUM 0.8 mg/dL (0.7-1.3); GFR1 > 60 mL/min; GLUCOSE SERUM 102 mg/dL (74-106); MAGNESIUM 2.4 mg/dL (1.8-2.4); PHOSPHOROUS 3.8 mg/dL (2.5-4.9); POTASSIUM SERUM 3.9 mmol/L (3.5-5.1); SODIUM SERUM 139 mmol/L (136-145); TOTAL PROTEIN, SERUM 6.6 g/dL (6.4-8.2)
[2019-03-09 07:15] LABS: ALBUMIN 2.1 g/dL (3.4-5.0)
--- NOTE | 2019-03-09 07:21 | NUR ---
RECEIVED PT FROM SHIFT NURSE A/OX4 RESTING IN BED. DENIES ANY ABD PAIN AT THIS TIME. IV INTACT AND PATENT. FAMILY MEMBER AT BEDSIDE. BED IN LOW POSITION. CALL LIGHT WITHIN REACH. WILL CONTINUE TO MONITOR.
[2019-03-09 07:25] LABS: BASOPHIL % 0 % (0-2)
[2019-03-09 07:36] LABS: ALT/SGPT 126 U/L (16-63)
[2019-03-09 08:06] VITALS: BP 104/64
--- NOTE | 2019-03-09 10:14 | NUR ---
PT SITTING UP IN BED TALKING WITH FAMILY MEMBERS. NO C/O OF ABD PAIN. CALL LIGHT WITHIN REACH. WILL CONTINUE TO MONITOR.
--- NOTE | 2019-03-09 12:45 | NUR ---
PT ASLEEP BUT AROUSABLE. NO ACUTE DISTRESS NOTED. CALL LIGHT WITHIN REACH. WILL CONTINUE TO MONITOR.
--- NOTE | 2019-03-09 13:00 | NUR ---
NAHID DRAIN REMOVED AND ABD DRESSING CHANGED CDI BY DR. LOWRY.
[2019-03-09 14:44] VITALS: BP 104/64
--- NOTE | 2019-03-09 15:32 | NUR ---
PT A/OX4 UPON DC. NO C/O OF ABD PAIN. IV REMOVED AND CATH INTACT. EDUCATION PROVIDED. NEW RX GIVEN. INSTRUCTED TO FOLLOW UP WITH PCP. PT VERBALIZED UNDERSTANDING. ABD DRESSINGS CDI. PERSONAL BELONGINGS TAKEN HOME. INSTRUCTED TO NOTIFY NURSES STATION BEFORE LEAVING.
== END 2019-03-09 16:10 | disposition home or self-care (01) | DRG 417 ==
LOC: EDSEX 16:56 → ED 16:56 → MU 20:06
PROVIDERS: Emergency Medicine; Internal Medicine; Surgery; ADMIT Internal Medicine
PROC: BF141ZZ Fluoroscopy of Gallbladder, Bile Ducts and Pancreatic Ducts using Low Osmolar Contrast (ICD-10-PCS; 2019-03-05)
PROC: 0F798DZ Dilation of Common Bile Duct with Intraluminal Device, Via Natural or Artificial Opening Endoscopic (ICD-10-PCS; 2019-03-05 09:30)
PROC: 0F7D8DZ Dilation of Pancreatic Duct with Intraluminal Device, Via Natural or Artificial Opening Endoscopic (ICD-10-PCS; 2019-03-05 09:30)
PROC: 0FT44ZZ Resection of Gallbladder, Percutaneous Endoscopic Approach (ICD-10-PCS; principal; 2019-03-06 10:30)
DX: K80.13 Calculus of gallbladder with acute and chronic cholecystitis with obstruction (principal); K85.10 Biliary acute pancreatitis without necrosis or infection; E02 Subclinical iodine-deficiency hypothyroidism; E83.51 Hypocalcemia; I10 Essential (primary) hypertension; R73.9 Hyperglycemia, unspecified; E87.6 Hypokalemia
CPT/HCPCS: 43262; 84439; 94150; C1769; C2617; C2625; G0378; J0330; J0690; J1170; J1610; J2250; J2270; J2405; J2543; J2704; J2710; J3010; J3490; J7030; J7120; Q0092; Q9967